=== PATIENT | female | born 1990 | race Caucasian/White ===

== ENCOUNTER 2017-05-11 18:55 | Emergency (ER) | payer MEDICAID ==
[2017-05-11] VITALS (7 sets, daily range): RESP 18; TEMP 97.8
[~2017-05-11 18:55] MED LIST: CIPR0.3S RIGHT EAR
[2017-05-11] MEDS ORDERED: LACTATED RINGER'S 1000 ML INJ 1,000 ML IV SCH (19:36)
[2017-05-11] MEDS ORDERED: PROM25TA10 PO (19:44)
[2017-05-11] MEDS ORDERED: PROM1SUP7 RECTAL (19:44)
--- NOTE | 2017-05-11 19:44 | PD ---
HPI Chief Complaint Nausea vomiting and diarrhea Date Seen: May 11, 2017 Travel History International Travel<30 Days: No Contact w/Intl Traveler<30Days: No Known Affected Area: No History of Present Illness HPI Patient is 26-year-old white female 32 weeks complains of nausea and vomiting and diarrhea today. She states that she thinks she had a stomach flu from her youngest child who recently went thru this. She denies bleeding or rupture the membranes no contractions some abdominal pain and low back pain is noted. heart rate tracing is reactive and only very rare contractions was seen Para: 3 : 4 History Obstetric History Obstetric History 3 vaginal deliveries Allergies-Medications (Allergen,Severity, Reaction): Coded Allergies: Penicillin (Verified Allergy, Severe, RASH, 08/30/16) Bactrim (Verified Allergy, Intermediate, RASH, 08/30/16) Doxycycline (Verified Allergy, Intermediate, RASH, 08/30/16) Home Meds Active Scripts Promethazine Supp (Phenergan Supp)25 Mg Supp25 Mg RECTAL Q6H PRN (NAUSEA OR VOMITING) #6 SUPP Ref 0 Prov:Mohinder Robles II, MD 05/11/17 Promethazine (Phenergan)25 Mg [id number] Mg PO Q6H PRN (NAUSEA OR VOMITING) #20 TAB Ref 0 Prov:Mohinder Robles II, MD 05/11/17 Ciprofloxacin-Dexamethasone Otic Drops (Ciprodex Otic Drops)0.3-0.1% Susp4 Drop RIGHT EAR BID 10 Days Ref 0 Prov:Sushma Walsh MD 08/31/16 Review of Systems General / Constitutional: No: Fever, Weight Gain, Chills, Other Eyes: No: Diploplia, Blurred Vision, Visual changes, Pain, Photophobia HENT: No: Headaches, Vertigo, Lightheadedness Cardiovascular: No: Irregular Rhythm, Chest Pain or Discomfort, Palpitations, Tachycardia, Syncope, Varicosities, Edema, Cyanosis Respiratory: No: Cough, Short of Breath, Other Gastrointestinal: Nausea, Vomiting, Diarrhea, Abdominal Pain Genitourinary: No: Decreased Urinary Output, Oliguria Musculoskeletal: No: Limited ROM, Weakness, Cramping, Edema, Pain Skin: No Rash, No Itching, No Dryness, No Lumps, No Change in Pigmentation, No Change in Nails, No Alopecia, No Lesions Neurologic: No: Weakness, Dizziness, Syncope, Focal Abnormalities, Coordination Problem, Headache, Slurred Speech, Seizures Psychiatric: No: Depression, Suicidal Ideations, Homicidal Ideation Endocrine: No: Heat Intolerance, Cold Intolerance, Polydipsia, Polyuria, Other Physical Exam Narrative GENERAL: Well-nourished, well-developed patient. SKIN: Warm and dry. HEAD: Normocephalic and atraumatic. EYES: No scleral icterus. No injection or drainage. ENT: No nasal drainage noted. Mucous membranes pink. Airway patent. NECK: Supple, trachea midline. No JVD. CARDIOVASCULAR: Regular rate and rhythm without murmurs, gallops, or rubs. RESPIRATORY: Breath sounds equal bilaterally. No accessory muscle use. BREASTS: Bilateral exam showed no masses , no retractions, no nipple discharge. ABDOMEN/GI: Abdomen soft, non-tender, bowel sounds present, no rebound, no guarding Gravid to [-32] weeks size Fundal Height: [-32] GENITOURINARY: External Genitalia: intact and normal in appearance BUS glands: [-] Cervix: [-] Dilatation: [Fingertip-] Effacement: [-Thick] Station: [-Posterior] Membranes: [intact ] Uterine Contractions: [Rare-] FHT's: Category: [1-] Baseline: [133-] Reactive: [yes-] Variability: [mod-] Decels: [0-] EXTREMITIES: No cyanosis or edema. BACK: Nontender without obvious deformity. No CVA tenderness. NEUROLOGICAL: Awake and alert. Motor and sensory grossly within normal limits. Five out of 5 muscle strength in all muscle groups. Normal speech. MDM Interpretation(s) Patient 26-year-old white female [address] Harris who presents complaining of nausea vomiting diarrhea and some mild abdominal pains as well. heart rate tracing is reactive and rare contraction noted. Patient's cervix is fingertip long and thick posterior, urine dipstick pending and will treat accordingly, we'll get a liter of IV fluid for hydration and 8 mg Zofran IV, and home with a prescription for by mouth Phenergan and Phenergan suppositories as a backup Plan Plan for patient to receive IV hydration and anti-medics here and a prescription to go home with. She is to increase bedrest at home increase oral intake by mouth hydration Tylenol use liberally, use imodium AD OTC for diarrhea ,bedrest heating pad or hot bath for comfort and follow-up with her OB provider further symptoms Diagnosis Diagnosis: Primary Impression: Nausea and vomiting of , antepartum Additional Impression: Abdominal pain during in third trimester Disposition: 01 DISCHARGE HOME Condition: Stable Scripts Promethazine Supp (Phenergan Supp)25 Mg Supp25 Mg RECTAL Q6H PRN (NAUSEA OR VOMITING) #6 SUPP Ref 0 Prov:Mohinder Robles II, MD 05/11/17 Promethazine (Phenergan)25 Mg [id number] Mg PO Q6H PRN (NAUSEA OR VOMITING) #20 TAB Ref 0 Prov:Mohinder Robles II, MD 05/11/17 Mohinder Robles II, MD May 11, 2017 19:44
[2017-05-11] MEDS ORDERED: ONDANSETRON HCL 4 MG/2 ML VIAL IV ONE (19:45)
[2017-05-11] MEDS ORDERED: TERBUTALINE INJ 1 MG/ML AMP SQ PRN (20:45)
== END 2017-05-12 00:54 | disposition home or self-care (01) ==
LOC: HOBED 18:55
DX: O21.9 Vomiting of pregnancy, unspecified (principal); Z3A.32 32 weeks gestation of pregnancy
CPT/HCPCS: 59025; 96372; 96374; 96375; 99284; J2405; J3010; J3105; J7120

== ENCOUNTER 2017-05-31 18:39 | Emergency (ER) | payer MEDICAID ==
[~2017-05-31 18:39] MED LIST changes: +PROM1SUP7 RECTAL; +PROM25TA10 PO
[2017-05-31] MEDS ORDERED: LACTATED RINGER'S 1000 ML INJ 1,000 ML IV ONE (19:45)
--- NOTE | 2017-05-31 19:46 | PD ---
HPI Chief Complaint Contractions, since AM 05-30-2017 Date Seen: May 31, 2017 Time Seen: 19:40 Travel History International Travel<30 Days: No Contact w/Intl Traveler<30Days: No Known Affected Area: No History of Present Illness HPI Pt is a 26 yo who presents with c/o uterine contractions since AM yesterday. Pt receives care at [facility], Dr Langford. EDC 07-06-2017, making her 34 weeks and 6 days today. Contractions initially widely spaced, and became more frequent this afternoon. She called office, and was told to present here for evaluation. Reports active movements. No vaginal discharge, bleeding or leaking fluid. Pt with h/o prior 35 week delivery. Denies SI or vaginal exam in past 24 hours. Para: 3 : 4 Last Menstrual Period: May 31, 2017 Miscarriage: 0 : 0 History Past Medical History Narrative Medical h/o renal stones Obstetric History Obstetric History h/o delivery at 35 weeks Past Surgical History Narrative Surgical h/o cholecystectomy wisdom tooth extraction Surgical History: No Previous Surgery Family History Family History: Negative (no relevant family history.) Social History Alcohol Use: No Tobacco Use: No (quit on finding out about ) Substance Abuse: No Allergies-Medications (Allergen,Severity, Reaction): Coded Allergies: Penicillin (Verified Allergy, Severe, RASH, 08/30/16) Bactrim (Verified Allergy, Intermediate, RASH, 08/30/16) Doxycycline (Verified Allergy, Intermediate, RASH, 08/30/16) Home Meds Active Scripts Promethazine Supp (Phenergan Supp)25 Mg Supp25 Mg RECTAL Q6H PRN (NAUSEA OR VOMITING) #6 SUPP Ref 0 Prov:Mohinder Robles II, MD 05/11/17 Promethazine (Phenergan)25 Mg [id number] Mg PO Q6H PRN (NAUSEA OR VOMITING) #20 TAB Ref 0 Prov:Mohinder Robles II, MD 05/11/17 Ciprofloxacin-Dexamethasone Otic Drops (Ciprodex Otic Drops)0.3-0.1% Susp4 Drop RIGHT EAR BID 10 Days Ref 0 Prov:Sushma Walsh MD 08/31/16 Review of Systems Except as stated in HPI: all other systems reviewed are Neg Physical Exam Narrative GENERAL: Well-nourished, well-developed patient. SKIN: Warm and dry. HEAD: Normocephalic and atraumatic. EYES: No scleral icterus. No injection or drainage. ENT: No nasal drainage noted. Mucous membranes pink. Airway patent. NECK: Supple, trachea midline. No JVD. CARDIOVASCULAR: Regular rate and rhythm without murmurs, gallops, or rubs. RESPIRATORY: Breath sounds equal bilaterally. No accessory muscle use. BREASTS: Bilateral exam showed no masses , no retractions, no nipple discharge. ABDOMEN/GI: Abdomen soft, non-tender, bowel sounds present, no rebound, no guarding FIBRONECTIN specimen obtained. Gravid to [-] weeks size Fundal Height: [-] GENITOURINARY: External Genitalia: intact and normal in appearance BUS glands: [-] Cervix: [firm] Dilatation: [closed] Effacement: [40%] Station: [-3 Presentation: [-] Membranes: [intact or ruptured] Uterine Contractions: [every 2 minutes] FHT's: Category: [cat 1] Baseline: [-] Reactive: [-] Variability: [-] Decels: [-] EXTREMITIES: No cyanosis or edema. BACK: Nontender without obvious deformity. No CVA tenderness. NEUROLOGICAL: Awake and alert. Motor and sensory grossly within normal limits. Five out of 5 muscle strength in all muscle groups. Normal speech. Data Data Vital Signs Reviewed: Yes [facility] Medical Record Reviewed: Yes Interpretation(s) Pt's contractions spaced out to occasional after single shot of SQ Terbutaline and 100cc LR IV bolus. Fibronectin is NEGATIVE. Urine dipstick wnl, SG 1.027 Recheck SVE prior to discharge is unchanged. Findings discussed with patient Plan Discharge home. Encouraged lberal fluids Keep scheduled office appointment on 06-07-2017 Disposition: DISCHARGE HOME Condition: Stable Charles Little MD May 31, 2017 19:46
[2017-05-31] MEDS ORDERED: TERBUTALINE INJ 1 MG/ML AMP SQ ONE (20:00)
[2017-05-31 20:37] LABS: BLOOD, URINE NEG (NEG); COMMENT (UR) CULT NOT INDICATED; CULTURE IF INDICATED CULT NOT INDICATED; GLUCOSE,URINE NEG (NEG); KETONE, URINE NEG (NEG); NITRITE,URINE NEG (NEG); SQUAMOUS EPITHELIAL CELL URINE 4 /hpf (0-5); URINE COLOR YELLOW (YELLW/STRAW)
--- NOTE | 2017-05-31 22:00 | PD ---
HPI Chief Complaint Feeling contractions 34 weeks and 6 days Date Seen: May 31, 2017 Travel History International Travel<30 Days: No Contact w/Intl Traveler<30Days: No Known Affected Area: No History of Present Illness HPI Pt is a 26 yo who presents with c/o uterine contractions since AM yesterday. [facility] Dr [facility]. EDC 07-06-2017, making her 34 weeks and 6 days today. Contractions initially widely spaced, and became more frequent this afternoon. She called office, and was told to present here for evaluation. Reports active movements. No vaginal discharge, bleeding or leaking fluid. Pt with h/o prior 35 week delivery. Denies SI or vaginal exam in past 24 hours. Para: 3 : 4 History Past Medical History Medical History: Denies Significant Hx Past Surgical History Narrative Surgical Cholecystectomy, [place] tooth extraction Surgical History: No Previous Surgery Social History Alcohol Use: No Tobacco Use: No (quit at onset of ) Substance Abuse: No Allergies-Medications (Allergen,Severity, Reaction): Coded Allergies: Penicillin (Verified Allergy, Severe, RASH, 08/30/16) Bactrim (Verified Allergy, Intermediate, RASH, 08/30/16) Doxycycline (Verified Allergy, Intermediate, RASH, 08/30/16) Home Meds Active Scripts Promethazine Supp (Phenergan Supp)25 Mg Supp25 Mg RECTAL Q6H PRN (NAUSEA OR VOMITING) #6 SUPP Ref 0 Prov:Mohinder Robles II, MD 05/11/17 Promethazine (Phenergan)25 Mg [id number] Mg PO Q6H PRN (NAUSEA OR VOMITING) #20 TAB Ref 0 Prov:Mohinder Robles II, MD 05/11/17 Ciprofloxacin-Dexamethasone Otic Drops (Ciprodex Otic Drops)0.3-0.1% Susp4 Drop RIGHT EAR BID 10 Days Ref 0 Prov:Sushma Walsh MD 08/31/16 Review of Systems Except as stated in HPI: all other systems reviewed are Neg Physical Exam Narrative GENERAL: Well-nourished, well-developed patient. SKIN: Warm and dry. HEAD: Normocephalic and atraumatic. EYES: No scleral icterus. No injection or drainage. ENT: No nasal drainage noted. Mucous membranes pink. Airway patent. NECK: Supple, trachea midline. No JVD. CARDIOVASCULAR: Regular rate and rhythm without murmurs, gallops, or rubs. RESPIRATORY: Breath sounds equal bilaterally. No accessory muscle use. BREASTS: Bilateral exam showed no masses , no retractions, no nipple discharge. ABDOMEN/GI: Abdomen soft, non-tender, bowel sounds present, no rebound, no guarding Gravid to [-] weeks size Fundal Height: [-] GENITOURINARY: External Genitalia: intact and normal in appearance BUS glands: [-] Cervix: [soft] Dilatation: [closed] Effacement: [uneffaced] Station: [-3] Presentation: [-] Membranes: [intact or ruptured] Uterine Contractions: [2-3] EXAM unchanged on recheck prior to discharge. Coontractions spaced out. FHT's: Category: [Cat 1] Baseline: [-] Reactive: [-] Variability: [-] Decels: [-] EXTREMITIES: No cyanosis or edema. BACK: Nontender without obvious deformity. No CVA tenderness. NEUROLOGICAL: Awake and alert. Motor and sensory grossly within normal limits. Five out of 5 muscle strength in all muscle groups. Normal speech. Data Data Orders Urinalysis - C+S If Indicated (05/31/17 19:34) Fibronectin (05/31/17 19:34) Lactated Ringer's 1000 Ml Inj (Lr 1000 M (05/31/17 19:45) Terbutaline Inj (Brethine Inj) (05/31/17 20:00) Labs Laboratory Tests Test 05/31/17 05/31/17 19:27 19:28 Urine Color YELLOW Urine Turbidity HAZY Urine pH 7.0 Urine Specific [place] 1.027 Urine Protein 30 Urine Glucose (UA) NEG Urine Ketones NEG Urine Occult Blood NEG Urine Nitrite NEG Urine Bilirubin NEG Urine Urobilinogen LESS THAN 2.0 Urine Leukocyte Esterase MOD Urine WBC 5 Urine Squamous Epithelial 4 Cells Microscopic Urinalysis Comment CULT NOT INDICATED Fibronectin NEGATIVE MDM Medical Record Reviewed: Yes Interpretation(s) No cervical change on re-exam. Cervix closed, long. fibronectin negative. UA wnl, SH1.027 Diagnosis Diagnosis: Primary Impression: uterine contractions in third trimester, antepartum Disposition: DISCHARGE HOME (keep scheduled FU with office 06-07-2017) Condition: Stable Patient Instructions: General Instructions, Early Labor Signs (ED), Labor (ED), Movement (ED) Departure Forms: Tests/Procedures Charles Little MD May 31, 2017 22:00
== END 2017-05-31 22:00 | disposition home or self-care (01) ==
LOC: HOBED 18:39
DX: O47.03 False labor before 37 completed weeks of gestation, third trimester (principal); Z3A.34 34 weeks gestation of pregnancy; Z88.1 Allergy status to other antibiotic agents; Z88.0 Allergy status to penicillin; Z88.8 Allergy status to other drugs, medicaments and biological substances
CPT/HCPCS: 59025; 81001; 82731; 96372; 99284; J3105; J7120

== ENCOUNTER 2017-06-09 21:00 | Emergency (ER) | payer MEDICAID ==
[~2017-06-09] VITALS: Ht 160 cm; Wt 73.0 kg
[2017-06-09 21:20] VITALS: RESP 18; TEMP 98.2
[2017-06-09 21:30] VITALS: BP 120/89; PULSE 90
[2017-06-09] MEDS ORDERED: PREN29TA PO (21:31)
--- NOTE | 2017-06-09 21:53 | PD ---
HPI Travel History International Travel<30 Days: No Contact w/Intl Traveler<30Days: No Known Affected Area: No History of Present Illness HPI This patient is a 26-year-old 4 para 2 EDC is July 06, 2017 presently at 36 weeks and 1 day she presents with chief complaint of contractions which began about 4 hours ago she has not time them No rupture of membrane, no vaginal bleeding the baby is active States the contractions are associated with low back pain and pressure in her pelvis and vaginal area care with Dr. Gutierrez course as been unremarkable She was seen in the office on Saturday checked she was 1 cm dilated History Past Medical History Narrative Medical Patient is allergic to Bactrim penicillin and doxycycline no major medical problems Obstetric History Obstetric History Normal spontaneous vaginal delivery 3 at term uncomplicated Past Surgical History Narrative Surgical Gallbladder and dental surgery Family History Narrative Family History Hypertension Social History Alcohol Use: No Tobacco Use: No Substance Abuse: No Allergies-Medications (Allergen,Severity, Reaction): Coded Allergies: penicillin G (Unverified Allergy, Severe, RASH, 06/09/17) doxycycline (Unverified Allergy, Intermediate, RASH, 06/09/17) sulfamethoxazole (Unverified Allergy, Intermediate, RASH, 06/09/17) trimethoprim (Unverified Allergy, Intermediate, RASH, 06/09/17) Home Meds Reported Medications Vit-Iron Carbonyl ( Plus Iron 29-1 mg) 1 Tab Tab, 1 TAB PO DAILY for Nutritional Supplement, #30 TAB 0 Refills 06/09/17 Discontinued Scripts Promethazine Supp (Phenergan Supp) 25 Mg Supp, 25 MG RECTAL Q6H Y for NAUSEA OR VOMITING, #6 SUPP 0 Refills Prov:Mohinder Robles II, MD 05/11/17 Promethazine (Phenergan) 25 Mg Tablet, 25 MG PO Q6H Y for NAUSEA OR VOMITING, # 20 TAB 0 Refills Prov:Mohinder Robles II, MD 05/11/17 Ciprofloxacin-Dexamethasone Otic Drops (Ciprodex Otic Drops) 0.3-0.1% Susp, 4 DROP RIGHT EAR BID for Infection for 10 Days, BOTTLE 0 Refills Prov:Sushma Walsh MD 08/31/16 Review of Systems General / Constitutional: No: Fever, Weight Gain, Weight Loss, Chills, Other Eyes: No: Diploplia, Blurred Vision, Visual changes, Pain, Photophobia, Other HENT: No: Headaches, Vertigo, Dental Difficulties, Lightheadedness, Other Cardiovascular: No: Irregular Rhythm, Chest Pain or Discomfort, Palpitations, Tachycardia, Syncope, Varicosities, Edema, Cyanosis, Other Respiratory: No: Cough, Short of Breath, Wheezing, Other Gastrointestinal: Nausea (mild nausea), Abdominal Pain (irregular contractions) Genitourinary: No: Urgency, Frequency, Dysuria, Nocturia, Hematuria, Decreased Urinary Output, Oliguria, Hesitancy, Dribbling, Incontinence, Pelvic Pain, Dyspareunia, Discharge, Menorrhagia, Vaginal Bleeding, Other Musculoskeletal: No: Limited ROM, Weakness, Cramping, Edema, Pain, Other Skin: No Rash, No Itching, No Dryness, No Lumps, No Change in Pigmentation, No Change in Nails, No Alopecia, No Lesions, No Breast Lumps, No Breast Tenderness , No Breast Swelling, No Other Neurologic: No: Weakness, Dizziness, Syncope, Focal Abnormalities, Coordination Problem, Headache, Slurred Speech, Seizures, Other Physical Exam Narrative GENERAL: Well-nourished, well-developed patient. Alert oriented 3 and cooperative in no acute distress SKIN: Warm and dry. HEAD: Normocephalic and atraumatic. EYES: No scleral icterus. No injection or drainage. Conjunctiva are pink ENT: No nasal drainage noted. Mucous membranes pink. Airway patent. NECK: Supple, trachea midline. No JVD. CARDIOVASCULAR: Regular rate and rhythm without murmurs, gallops, or rubs. ABDOMEN/GI: Gravid consistent with stated gestational age of 36 weeks no palpable contractions no epigastric or right upper quadrant tenderness no rebound Gravid to [-] weeks size 36 Fundal Height: [-] GENITOURINARY: External Genitalia: intact and normal in appearance BUS glands: [-] Cervix: [-] Posterior soft Dilatation: [-] 1 Effacement: [-] 0 Station: [-] Ballotable Presentation: [-] Vertex Membranes: [intact Irregular contractions FHT's: Category: [-] 1 Baseline: [-] 140 Reactive: [-] Positive Variability: [-] Moderate Decels: [-] 0 EXTREMITIES: No cyanosis or edema. 2+ reflexes NEUROLOGICAL: Awake and alert. Motor and sensory grossly within normal limits. Five out of 5 muscle strength in all muscle groups. Normal speech. Data Data Vital Signs Reviewed: Yes (blood pressure 120/89 pulse is 90 she is afebrile) Orders Orders Vital Signs (Adult) .ON ADMISSION (06/09/17 21:46) ^ Labor Status (06/09/17 21:46) Urinalysis - C+S If Indicated (06/09/17 21:46) ^ Hydration (06/09/17 21:46) MDM Medical Record Reviewed: No Interpretation(s) 26-year-old 4 para 3 at 36 weeks and 1 day Not in labor Yoni Webb Lightning Rule out UTI Narrative Course / MDM Category 1 tracing No contractions We'll discharge patient home By mouth fluid hydration Rest Warm tub bath kick count Call office in the morning for follow-up appointment Plan External monitoring By mouth fluid hydration Urine dipstick was done Everything is negative Moderate leukocyte esterase Diagnosis Diagnosis: Primary Impression: with 36 completed weeks gestation Additional Impression: Nowata Webb' contraction Disposition: DISCHARGE HOME Condition: Stable Patti Santana MD Jun 09, 2017 21:53
== END 2017-06-09 22:20 | disposition home or self-care (01) ==
LOC: HOBED 21:00
DX: O47.03 False labor before 37 completed weeks of gestation, third trimester (principal); Z3A.36 36 weeks gestation of pregnancy
CPT/HCPCS: 99284

== ENCOUNTER 2017-06-16 08:17 | Emergency (ER) | payer MEDICAID ==
[~2017-06-16 08:17] MED LIST changes: -CIPR0.3S RIGHT EAR; +PREN29TA PO; -PROM1SUP7 RECTAL; -PROM25TA10 PO
--- NOTE | 2017-06-16 09:33 | PD ---
HPI Chief Complaint contractions Date Seen: Jun 16, 2017 Travel History International Travel<30 Days: No Contact w/Intl Traveler<30Days: No Known Affected Area: No History of Present Illness HPI 26 yo @ 37w1d. care with Dr. Gutierrez. Uncomplicated . GBS pos. Patient reports UC since 5AM, they were irregular and now maybe q 5 min. She noted a small amount of bloody show. No LOF or abnormal discharge. +FM. History Past Medical History Narrative Medical Tattoo Piercing Obstetric History Obstetric History x 3 Past Surgical History Narrative Surgical wisdom teeth gallbladder Family History Family History: Negative Social History Alcohol Use: No Tobacco Use: No Substance Abuse: No Allergies-Medications (Allergen,Severity, Reaction): Coded Allergies: penicillin G (Unverified Allergy, Severe, RASH, 06/09/17) doxycycline (Unverified Allergy, Intermediate, RASH, 06/09/17) sulfamethoxazole (Unverified Allergy, Intermediate, RASH, 06/09/17) trimethoprim (Unverified Allergy, Intermediate, RASH, 06/09/17) Home Meds Reported Medications Vit-Iron Carbonyl ( Plus Iron 29-1 mg) 1 Tab Tab, 1 TAB PO DAILY for Nutritional Supplement, #30 TAB 0 Refills 06/09/17 Discontinued Scripts Promethazine Supp (Phenergan Supp) 25 Mg Supp, 25 MG RECTAL Q6H Y for NAUSEA OR VOMITING, #6 SUPP 0 Refills Prov:Mohinder Robles II, MD 05/11/17 Promethazine (Phenergan) 25 Mg Tablet, 25 MG PO Q6H Y for NAUSEA OR VOMITING, # 20 TAB 0 Refills Prov:Mohinder Robles II, MD 05/11/17 Ciprofloxacin-Dexamethasone Otic Drops (Ciprodex Otic Drops) 0.3-0.1% Susp, 4 DROP RIGHT EAR BID for Infection for 10 Days, BOTTLE 0 Refills Prov:Sushma Walsh MD 08/31/16 Review of Systems General / Constitutional: No: Fever, Chills Eyes: No: Visual changes HENT: No: Headaches, Lightheadedness Cardiovascular: No: Chest Pain or Discomfort, Palpitations Respiratory: No: Cough, Short of Breath Gastrointestinal: Abdominal Pain (contractions), No: Nausea, Vomiting Genitourinary: Vaginal Bleeding (small amount of bloody show), No: Urgency, Discharge Musculoskeletal: No: Limited ROM, Weakness Skin: No Rash, No Lesions Neurologic: No: Syncope, Focal Abnormalities Physical Exam Narrative GENERAL: Well-nourished, well-developed patient. NAD SKIN: Warm and dry. HEAD: Normocephalic and atraumatic. EYES: No scleral icterus. No injection or drainage. ENT: No nasal drainage noted. Mucous membranes pink. Airway patent. NECK: trachea midline. No JVD. CARDIOVASCULAR: Regular rate RESPIRATORY: No accessory muscle use. ABDOMEN/GI: Abdomen soft, non-tender, no rebound, no guarding Gravid GENITOURINARY: External Genitalia: intact and normal in appearance BUS glands: [-] SVE: 3/60/-2 FHT's: Category: I Baseline: 155 Reactive: + Variability: mod Decels: [-] EXTREMITIES: No cyanosis or edema. BACK: Nontender without obvious deformity. Normal ROM NEUROLOGICAL: Awake and alert. Motor and sensory grossly within normal limits. Normal speech. Data Data Vital Signs Reviewed: Yes Orders Orders Vital Signs (Adult) .ON ADMISSION (06/16/17 08:43) ^ Labor Status (06/16/17 08:43) ^ Non Stress Test (06/16/17 08:43) Group B Strep: Positive MDM Narrative Course / MDM 37 weeks Latent vs early labor minimal cervical change from clinic visit Irregular UC at this time CAT I FHT Plan Offered to recheck Patient would like to go home and monitor UC Return when stronger or more regular Patient agrees with plan of care Diagnosis Diagnosis: Primary Impression: False labor after 37 weeks of gestation without delivery Additional Impressions: GBS (group B Streptococcus carrier), +RV culture, currently 37 weeks gestation of Disposition: 01 DISCHARGE HOME Condition: Good Gely Bruce MD Jun 16, 2017 09:33
== END 2017-06-16 09:40 | disposition home or self-care (01) ==
LOC: HOBED 08:17
DX: O47.1 False labor at or after 37 completed weeks of gestation (principal); O99.820 Streptococcus B carrier state complicating pregnancy; Z3A.37 37 weeks gestation of pregnancy
CPT/HCPCS: 59025

== ENCOUNTER 2017-06-18 12:59 | Emergency (ER) | payer MEDICAID ==
[~2017-06-18] VITALS: Ht 160 cm; Wt 73.0 kg
--- NOTE | 2017-06-18 16:00 | PD ---
HPI Chief Complaint Pelvic pressure, vaginal pain Travel History International Travel<30 Days: No Contact w/Intl Traveler<30Days: No Known Affected Area: No History of Present Illness HPI 27y/o , IUP at 37.3 PNC complicated by GBS positive Patient presents c/o pelvic pressure and vaginal pain/pain between her legs with the sensation that it is painful to walk. She reports some irregular ctx; she reports she was seen here 2d ago and SVE was 3/50. She denies any aggravating/alleviating factors except the pain sensation with walking. There are no attempted treatments. She denies any LOF or VB. She reports good FM. She has no other complaints today. She denies pain on/in the pubic symphysis. Weeks Gestation: 37 Para: 3 : 4 History Past Medical History Medical History: Denies Significant Hx Obstetric History Obstetric History 3 FT Past Surgical History Narrative Surgical Cholecystectomy [place] teeth extraction Family History Narrative Family History DM HTN CAD [place] Social History Alcohol Use: No Tobacco Use: No Substance Abuse: No Allergies-Medications (Allergen,Severity, Reaction): Coded Allergies: penicillin G (Verified Allergy, Severe, RASH, 06/18/17) doxycycline (Verified Allergy, Intermediate, RASH, 06/18/17) sulfamethoxazole (Verified Allergy, Intermediate, RASH, 06/18/17) trimethoprim (Verified Allergy, Intermediate, RASH, 06/18/17) Home Meds Reported Medications Vit-Iron Carbonyl ( Plus Iron 29-1 mg) 1 Tab Tab, 1 TAB PO DAILY for Nutritional Supplement, #30 TAB 0 Refills 06/09/17 Review of Systems Except as stated in HPI: all other systems reviewed are Neg Physical Exam Narrative GENERAL: Well-nourished, well-developed patient. SKIN: Warm and dry. HEAD: Normocephalic and atraumatic. EYES: No scleral icterus. No injection or drainage. ENT: No nasal drainage noted. Mucous membranes pink. Airway patent. NECK: Supple, trachea midline. No JVD. CARDIOVASCULAR: Regular rate and rhythm without murmurs, gallops, or rubs. RESPIRATORY: Breath sounds equal bilaterally. No accessory muscle use. BREASTS: deferred ABDOMEN/GI: Abdomen soft, non-tender, bowel sounds present, no rebound, no guarding Gravid, pubic symphysis nontender GENITOURINARY: External Genitalia: intact and normal in appearance BUS glands: [normal] Cervix: [no cervical/vaginal masses, physiologic d/c, normal rugae] Dilatation: [3] Effacement: [50] Station: [-3] Presentation: [cephalic] Membranes: [intact] Uterine Contractions: [irregular ctx pattern] FHT's: Category: [1] Baseline: [120s] Reactive: [reactive] Variability: [moderate LTV] Decels: [good accels, no decels] EXTREMITIES: No cyanosis or edema. BACK: Nontender without obvious deformity. No CVA tenderness. NEUROLOGICAL: Awake and alert. Motor and sensory grossly within normal limits. Five out of 5 muscle strength in all muscle groups. Normal speech. MS: grossly normal ROM, gait, muscle strength PSYCH: grossly normal memory/affect MDM Plan A/P: 27y/o 1. IUP at 37 2. No evidence of active labor, strict labor precautions 3. Pelvic pain/pressure likely secondary to normal symptoms at advanced gestational age, comfort measures offered 4. wellbeing: reassuring testing with reactive NST, FHR reassuring and appropriate for gestational age. FKC daily. 5. F/U with primary MD in 2-3d or sooner if needed 6. GBS positive Diagnosis Diagnosis: Primary Impression: 37 weeks gestation of Additional Impression: False labor at or after 37 completed weeks of gestation Disposition: 01 DISCHARGE HOME Condition: Good Patient Instructions: General Instructions, Having Your Baby: The Labor Process (GEN), Movement (ED) Additional Instructions: Return if water breaks, regular painful contractions, vaginal bleeding or decreased movement. Keep regular scheduled appointment. Departure Forms: Tests/Procedures Mona Vaughn MD Jun 18, 2017 16:00
== END 2017-06-18 16:44 | disposition home or self-care (01) ==
LOC: HOBED 12:59
DX: O47.1 False labor at or after 37 completed weeks of gestation (principal); Z3A.37 37 weeks gestation of pregnancy; Z88.0 Allergy status to penicillin; Z88.2 Allergy status to sulfonamides; Z88.8 Allergy status to other drugs, medicaments and biological substances
CPT/HCPCS: 59025

== ENCOUNTER 2017-06-23 12:28 | Emergency (ER) | payer MEDICAID ==
[~2017-06-23] VITALS: Ht 160 cm; Wt 73.5 kg
[2017-06-23 12:45] VITALS: RESP 20; TEMP 98.2
--- NOTE | 2017-06-23 13:16 | PD ---
HPI Chief Complaint Contractions Thin vaginal discharge Date Seen: Jun 23, 2017 Time Seen: 13:03 Travel History International Travel<30 Days: No Contact w/Intl Traveler<30Days: No Known Affected Area: No History of Present Illness HPI Pt is a 27 yo who presents at 38 weeks and 1 day. EDC 07-06-2017. care with Dr Gutierrez Pt reports vaginal discharge past week, with back pain and pressure. Reports uterine contractions this morning. Active movements. No vaginal bleeding. Weeks Gestation: 38 Para: 3 : 4 History Past Surgical History Narrative Surgical Laparoscopic cholecystectomy Family History Family History: Negative Social History Alcohol Use: No Tobacco Use: No Substance Abuse: No Allergies-Medications (Allergen,Severity, Reaction): Coded Allergies: penicillin G (Verified Allergy, Severe, RASH, 06/18/17) doxycycline (Verified Allergy, Intermediate, RASH, 06/18/17) sulfamethoxazole (Verified Allergy, Intermediate, RASH, 06/18/17) trimethoprim (Verified Allergy, Intermediate, RASH, 06/18/17) Home Meds Reported Medications Vit-Iron Carbonyl ( Plus Iron 29-1 mg) 1 Tab Tab, 1 TAB PO DAILY for Nutritional Supplement, #30 TAB 0 Refills 06/09/17 Review of Systems Except as stated in HPI: all other systems reviewed are Neg Physical Exam Narrative GENERAL: Well-nourished, well-developed patient. SKIN: Warm and dry. HEAD: Normocephalic and atraumatic. EYES: No scleral icterus. No injection or drainage. ENT: No nasal drainage noted. Mucous membranes pink. Airway patent. NECK: Supple, trachea midline. No JVD. CARDIOVASCULAR: Regular rate and rhythm without murmurs, gallops, or rubs. RESPIRATORY: Breath sounds equal bilaterally. No accessory muscle use. BREASTS: Bilateral exam showed no masses , no retractions, no nipple discharge. ABDOMEN/GI: Abdomen soft, non-tender, bowel sounds present, no rebound, no guarding Gravid to [38 weeks size Fundal Height: [38 GENITOURINARY: External Genitalia: intact and normal in appearance BUS glands: [-] Cervix: [soft-] Dilatation: [2-3cm] Effacement: [50%] Station: [-3] Presentation: [vertex] Membranes: [intact] Uterine Contractions: [3-4minutes] SWAB taken for Amniosure FHT's: Category: [1] Baseline: [130s] Reactive: [-] Variability: [moderate] Decels: [none] EXTREMITIES: No cyanosis or edema. BACK: Nontender without obvious deformity. No CVA tenderness. NEUROLOGICAL: Awake and alert. Motor and sensory grossly within normal limits. Five out of 5 muscle strength in all muscle groups. Normal speech. Data Data Vital Signs Reviewed: Yes Orders Orders Vital Signs (Adult) .ON ADMISSION (06/23/17 13:01) ^ Labor Status (06/23/17 13:01) Pamg-1 Test .ONCE (06/23/17 13:01) Group B Strep: Positive MDM Medical Record Reviewed: Yes Interpretation(s) FALSE LABOR Uterine contractions. Initial exam unchanged from last exam 06-18-2017 Amniosure sent Repeat exam unchanged. Amniosure NEGATIVE Plan Interval repeat cervical exam.- unchanged Amniosure negative Diagnosis Diagnosis: Primary Impression: False labor after 37 completed weeks of gestation Additional Impression: with 38 completed weeks gestation Disposition: DISCHARGE HOME Charles Little MD Jun 23, 2017 13:16
== END 2017-06-23 13:43 | disposition home or self-care (01) ==
LOC: HOBED 12:28
DX: Z03.71 Encounter for suspected problem with amniotic cavity and membrane ruled out (principal); O47.1 False labor at or after 37 completed weeks of gestation; Z3A.38 38 weeks gestation of pregnancy
CPT/HCPCS: 84112; 99283

== ENCOUNTER 2017-07-02 18:21 | Emergency (ER) | payer MEDICAID ==
--- NOTE | 2017-07-02 19:26 | PD ---
HPI Chief Complaint discomfort, pressure , a few contractions Date Seen: Jul 02, 2017 Time Seen: 19:20 Travel History International Travel<30 Days: No Contact w/Intl Traveler<30Days: No Known Affected Area: No History of Present Illness HPI 27-year-old white female G for P3 39 weeks complains of contractions irregular. , pressure and discomfort all over. heart rate tracing is reactive she is natacha every 3 minutes but not with a lot of discomfort Weeks Gestation: 39 Para: 3 : 4 History Obstetric History Obstetric History 3 vaginal deliveries Social History Alcohol Use: No Tobacco Use: No Substance Abuse: No Allergies-Medications (Allergen,Severity, Reaction): Coded Allergies: penicillin G (Verified Allergy, Severe, RASH, 06/18/17) doxycycline (Verified Allergy, Intermediate, RASH, 06/18/17) sulfamethoxazole (Verified Allergy, Intermediate, RASH, 06/18/17) trimethoprim (Verified Allergy, Intermediate, RASH, 06/18/17) Home Meds Reported Medications Vit-Iron Carbonyl ( Plus Iron 29-1 mg) 1 Tab Tab, 1 TAB PO DAILY for Nutritional Supplement, #30 TAB 0 Refills 06/09/17 Review of Systems General / Constitutional: No: Fever, Weight Gain, Chills, Other Eyes: No: Diploplia, Blurred Vision, Visual changes, Pain, Photophobia HENT: No: Headaches, Vertigo, Lightheadedness Cardiovascular: No: Irregular Rhythm, Chest Pain or Discomfort, Palpitations, Tachycardia, Syncope, Varicosities, Edema, Cyanosis Respiratory: No: Cough, Short of Breath, Other Gastrointestinal: No: Nausea, Vomiting, Diarrhea Genitourinary: No: Decreased Urinary Output, Oliguria Musculoskeletal: No: Limited ROM, Weakness, Cramping, Edema, Pain Skin: No Rash, No Itching, No Dryness, No Lumps, No Change in Pigmentation, No Change in Nails, No Alopecia, No Lesions Neurologic: No: Weakness, Dizziness, Syncope, Focal Abnormalities, Coordination Problem, Headache, Slurred Speech, Seizures Psychiatric: No: Depression, Suicidal Ideations, Homicidal Ideation Endocrine: No: Heat Intolerance, Cold Intolerance, Polydipsia, Polyuria, Other Physical Exam Narrative GENERAL: Well-nourished, well-developed patient. SKIN: Warm and dry. HEAD: Normocephalic and atraumatic. EYES: No scleral icterus. No injection or drainage. ENT: No nasal drainage noted. Mucous membranes pink. Airway patent. NECK: Supple, trachea midline. No JVD. CARDIOVASCULAR: Regular rate and rhythm without murmurs, gallops, or rubs. RESPIRATORY: Breath sounds equal bilaterally. No accessory muscle use. BREASTS: Bilateral exam showed no masses , no retractions, no nipple discharge. ABDOMEN/GI: Abdomen soft, non-tender, bowel sounds present, no rebound, no guarding Gravid to [39-] weeks size Fundal Height: [-39] GENITOURINARY: External Genitalia: intact and normal in appearance BUS glands: [-] Cervix: [Posterior-] Dilatation: [4-5-] patient states she was 4-5 in the office recently visit Effacement: [-Thick] Station: [-3] Presentation: [vtx-] Membranes: [intact ] Uterine Contractions: [Every 3-4 minutes-] FHT's: Category: [-1] Baseline: [133-] Reactive: [yes-] Variability: [mod-] Decels: [none-] EXTREMITIES: No cyanosis or edema. BACK: Nontender without obvious deformity. No CVA tenderness. NEUROLOGICAL: Awake and alert. Motor and sensory grossly within normal limits. Five out of 5 muscle strength in all muscle groups. Normal speech. MDM Interpretation(s) Patient is 27-year-old white female patient Dr. Langford presents complaining of contractions or not really painful but present, discomfort, pressure. heart rate tracing is reactive and contractions are seen on the monitor, however cervix is unchanged from recent office visit is 4-5 cm very thick and posterior Plan Plan to discharge home for return with worsening contractions over water breaks or bleeding occurs. She understands that she needs to rest and increase her fluid intake and use a heating pad or hot bath for symptoms Diagnosis Diagnosis: Primary Impression: False labor after 37 weeks of gestation without delivery Disposition: 01 DISCHARGE HOME Condition: Stable Mohinder Robles II, MD Jul 02, 2017 19:26
== END 2017-07-02 19:30 | disposition home or self-care (01) ==
LOC: HOBED 18:21
DX: O47.1 False labor at or after 37 completed weeks of gestation (principal); Z3A.39 39 weeks gestation of pregnancy
CPT/HCPCS: 59025

== ENCOUNTER 2017-07-05 09:59 | Inpatient (IN) | payer MEDICAID ==
[2017-07-05] VITALS (62 sets, daily range): BP systolic 107–146; BP diastolic 54–94; PULSE 61–91; RESP 16–18; TEMP 98.1–98.3
[~2017-07-05] VITALS: Ht 160 cm; Wt 73.9 kg
[2017-07-05 11:30] LABS: AUTOMATED NEUTROPHIL # 7.6 TH/MM3 (1.8-7.7); BASOPHIL # 0.1 TH/MM3 (0-0.2); BASOPHIL % 0.6 % (0.0-2.0); EOSINOPHIL # 0.1 TH/MM3 (0-0.4); EOSINOPHIL % 0.9 % (0.0-4.0); HEMATOCRIT 35.5 % (35.0-46.0); HEMO FLAGS DIFF FINAL; LYMPH % 20.7 % (9.0-44.0); LYMPHOCYTE # 2.2 TH/MM3 (1.0-4.8); MEAN CELL VOLUME 80.9 FL (80.0-100.0); MEAN CORPUSCULAR HEMOGLOBIN 26.5 PG (27.0-34.0); MEAN CORPUSCULAR HGB CONC 32.8 % (32.0-36.0); MONO % 6.1 % (0.0-8.0); NEUT % 71.7 % (16.0-70.0); PLATELET COUNT 191 TH/MM3 (150-450); RED BLOOD COUNT 4.39 MIL/MM3 (4.00-5.30); RED CELL DISTRIBUTION WIDTH 14.1 % (11.6-17.2); WHITE BLOOD COUNT 10.6 TH/MM3 (4.0-11.0)
[2017-07-05 11:40] LABS: BACTERIA, URINE FEW /hpf; BLOOD, URINE NEG (NEG); COMMENT (UR) CULTURE INDICATED; CULTURE IF INDICATED CULTURE INDICATED; GLUCOSE,URINE NEG (NEG); KETONE, URINE NEG (NEG); MUCUS URINE FEW /lpf (OCC); NITRITE,URINE NEG (NEG); SQUAMOUS EPITHELIAL CELL URINE 11 /hpf (0-5); URINE COLOR YELLOW (YELLW/STRAW)
[2017-07-05] MEDS ORDERED: MINERAL OIL 10 ML VIAL TOPICAL PRN (11:45)
[2017-07-05] MEDS ORDERED: LIDOCAINE HCL 1% 50 ML VIAL INFIL PRN (11:45)
[2017-07-05] MEDS ORDERED: CITRIC ACID-SODIUM CITRATE LIQ 30 ML UDC PO SCH (11:45)
[2017-07-05] MEDS ORDERED: SODIUM CHLORID 0.9% 500 ML INJ 500 ML IV PRN (11:45)
[2017-07-05] MEDS ORDERED: OXYTOCIN 30 UNITS-500ML PREMIX 500 ML IV SCH ×3 (11:45→23:00)
[2017-07-05] MEDS ORDERED: OXYTOCIN 30 UNITS-500ML PREMIX 500 ML IV ONE (11:45)
[2017-07-05] MEDS ORDERED: LIDOCAINE HCL 1% 50 ML VIAL I-DERMAL PRN (11:45)
[2017-07-05] MEDS ORDERED: SODIUM CHLOR 0.9% 1000 ML INJ 1,000 ML IV PRN (12:00)
[2017-07-05] MEDS ORDERED: ceFAZolin 2 GM PREMIX 50 ML IV ONE (12:00)
[2017-07-05] MEDS: LACTATED RINGER'S 1000 ML INJ 1,000 ML IV SCH ×2 (12:08→12:38)
[2017-07-05] MEDS: LACTATED RINGER'S 1000 ML INJ 1,000 ML IV PRN ×2 (14:58→16:58)
[2017-07-05] MEDS ORDERED: DIPHTH/TETANUS/ACEL PERTUSSIS (BOOSTER) 0.5 ML VIAL/PFS IM ONE (16:00)
[2017-07-05] MEDS ORDERED: MEASLES, MUMPS, RUBELLA VACCINE 0.5 ML VIAL SQ ONE (16:00)
[2017-07-05] MEDS ORDERED: fentaNYL 2MCG-BUPIV 0.125% INJ 100 ML ONE (16:19)
[2017-07-05] MEDS ORDERED: ePHEDrine/NS 25 MG/5 ML SYR ONE (16:27)
[2017-07-05] MEDS ORDERED: BUPIVACAINE HCL PF 0.25% 10 ML VIAL ONE (16:33)
[2017-07-05] MEDS ORDERED: DO NOT ADMINISTER ANTICOAGULANTS PRN (17:30)
[2017-07-05] MEDS ORDERED: fentaNYL 2MCG-BUPIV 0.125% 100 ML EPIDURAL SCH (17:30)
[2017-07-05] MEDS ORDERED: NO SYSTEM NARCOTICS PRN (17:30)
[2017-07-05] MEDS ORDERED: ePHEDrine/NS 25 MG/5 ML SYR IV PRN (17:30)
--- NOTE | 2017-07-05 22:54 | HHI.HP ---
HPI Chief Complaint induction at 39 weeks Date Seen: Jul 05, 2017 Time Seen: 12:00 Travel History International Travel<30 Days: No Contact w/Intl Traveler<30Days: No Known Affected Area: No History of Present Illness HPI 39 week induction with favorable cervix Weeks Gestation: 39 Para: 3 : 4 History Past Medical History Medical History: Denies Significant Hx Past Surgical History Surgical History: No Previous Surgery Family History Family History: Negative Social History Alcohol Use: No Tobacco Use: No Substance Abuse: No Allergies-Medications (Allergen,Severity, Reaction): Coded Allergies: penicillin G (Verified Allergy, Severe, RASH, 06/18/17) doxycycline (Verified Allergy, Intermediate, RASH, 06/18/17) sulfamethoxazole (Verified Allergy, Intermediate, RASH, 06/18/17) trimethoprim (Verified Allergy, Intermediate, RASH, 06/18/17) Home Meds Reported Medications Vit-Iron Carbonyl ( Plus Iron 29-1 mg) 1 Tab Tab, 1 TAB PO DAILY for Nutritional Supplement, #30 TAB 0 Refills 06/09/17 Review of Systems Except as stated in HPI: all other systems reviewed are Neg Physical Exam Vital Signs Date Time Temp Pulse Resp B/P (MAP) Pulse Ox O2 Delivery O2 Flow Rate FiO2 07/05/17 22:30 88 128/79 (95) 07/05/17 22:15 86 110/58 (75) 07/05/17 22:00 98.1 17 07/05/17 22:00 86 112/67 (82) 07/05/17 21:46 91 116/79 (91) 07/05/17 21:15 61 107/54 (71) 07/05/17 21:08 18 07/05/17 21:00 65 117/75 (89) 07/05/17 20:45 71 125/72 (89) 07/05/17 20:30 69 128/76 (93) 07/05/17 20:15 70 123/77 (92) 07/05/17 20:01 68 128/70 (89) 07/05/17 19:46 123/64 (83) 07/05/17 19:31 67 123/66 (85) 07/05/17 19:21 98.1 17 07/05/17 19:15 72 121/80 (94) 07/05/17 19:00 64 119/68 (85) 07/05/17 18:45 66 119/65 (83) 07/05/17 18:15 68 120/70 (87) 07/05/17 17:55 80 07/05/17 17:50 82 07/05/17 17:46 62 114/63 (80) 07/05/17 17:45 74 07/05/17 17:34 18 07/05/17 17:30 73 18 119/69 (86) 07/05/17 17:30 67 07/05/17 17:25 72 07/05/17 17:20 79 07/05/17 17:15 73 121/60 (80) 07/05/17 17:15 65 07/05/17 17:10 69 07/05/17 17:05 71 07/05/17 17:05 73 115/68 (84) 07/05/17 17:01 71 118/54 (75) 07/05/17 17:00 71 07/05/17 16:56 69 18 115/62 (79) 07/05/17 16:55 66 07/05/17 16:53 61 111/65 (80) 07/05/17 16:51 63 117/58 (77) 07/05/17 16:50 86 07/05/17 16:45 81 131/81 (98) 07/05/17 16:45 79 07/05/17 16:41 79 119/85 (96) 07/05/17 16:40 72 07/05/17 16:38 18 07/05/17 16:37 74 129/81 (97) 07/05/17 16:35 65 07/05/17 16:30 62 07/05/17 16:15 98.3 18 07/05/17 16:15 61 119/70 (86) 07/05/17 15:46 78 16 107/58 (74) 07/05/17 15:03 64 115/66 (82) 07/05/17 15:00 16 07/05/17 14:08 16 07/05/17 14:07 75 120/75 (90) 07/05/17 13:35 79 120/71 (87) 07/05/17 13:34 98.1 16 07/05/17 12:36 87 115/68 (84) 07/05/17 12:35 16 9/15/17 12:13 81 118/77 (91) 07/05/17 12:12 98.1 17 Narrative GENERAL: Well-nourished, well-developed patient. SKIN: Warm and dry. HEAD: Normocephalic and atraumatic. EYES: No scleral icterus. No injection or drainage. ENT: No nasal drainage noted. Mucous membranes pink. Airway patent. NECK: Supple, trachea midline. No JVD. CARDIOVASCULAR: Regular rate and rhythm without murmurs, gallops, or rubs. RESPIRATORY: Breath sounds equal bilaterally. No accessory muscle use. BREASTS: Bilateral exam showed no masses , no retractions, no nipple discharge. ABDOMEN/GI: Abdomen soft, non-tender, bowel sounds present, no rebound, no guarding Gravid to 39 weeks size Fundal Height: [-] GENITOURINARY: External Genitalia: intact and normal in appearance BUS glands: [-] Cervix: [-] Dilatation: 3 Effacement: [-] Station: [-] Presentation: vtx Membranes: intact Uterine Contractions: [-] FHT's: Category: 1 Baseline: [-] Reactive: [-] Variability: [-] Decels: [-] EXTREMITIES: No cyanosis or edema. BACK: Nontender without obvious deformity. No CVA tenderness. NEUROLOGICAL: Awake and alert. Motor and sensory grossly within normal limits. Five out of 5 muscle strength in all muscle groups. Normal speech. Caprini VTE Risk Assessment Caprini VTE Risk Assessment: No/Low Risk (score <= 1) Caprini Risk Assessment Model Point Value = 1 Point Value = 2 Point Value = 3 Point Value = 5 Age 41-60 Minor surgery BMI > 25 kg/m2 Swollen legs Varicose veins or History of unexplained or recurrent spontaneous Oral contraceptives or hormone replacement Sepsis (< 1 month) Serious lung disease, including pneumonia (< 1 month) Abnormal pulmonary function Acute myocardial infarction Congestive heart failure (< 1 month) History of inflammatory bowel disease Medical patient at bed rest Age 61-74 Arthroscopic surgery Major open surgery (> 45 min) Laparoscopic surgery (> 45 min) Malignancy Confined to bed (> 72 hours) Immobilizing plaster cast Central venous access Age >= 75 History of VTE Family history of VTE Factor V Leiden Prothrombin [id number] Lupus anticoagulant Anticardiolipin antibodies Elevated serum homocysteine Heparin-induced thrombocytopenia Other congenital or acquired thrombophilia Stroke (< 1 month) Elective arthroplasty Hip, pelvis, or leg fracture Acute spinal cord injury (< 1 month) Prophylaxis Regimen Total Risk Factor Score Risk Level Prophylaxis Regimen 0-1 Low Early ambulation 2 Moderate Order ONE of the following: *Sequential Compression Device (SCD) *Heparin 5000 units SQ BID 3-4 Higher Order ONE of the following medications: *Heparin 5000 units SQ TID *Enoxaparin/Lovenox 40 mg SQ daily (WT < 150 kg, CrCl > 30 mL/min) *Enoxaparin/Lovenox 30 mg SQ daily (WT < 150 kg, CrCl > 10-29 mL/min) *Enoxaparin/Lovenox 30 mg SQ BID (WT < 150 kg, CrCl > 30 mL/min) AND/OR *Sequential Compression Device (SCD) 5 or more Highest Order ONE of the following medications: *Heparin 5000 units SQ TID (Preferred with Epidurals) *Enoxaparin/Lovenox 40 mg SQ daily (WT < 150 kg, CrCl > 30 mL/min) *Enoxaparin/Lovenox 30 mg SQ daily (WT < 150 kg, CrCl > 10-29 mL/min) *Enoxaparin/Lovenox 30 mg SQ BID (WT < 150 kg, CrCl > 30 mL/min) AND *Sequential Compression Device (SCD) Data Data Vital Signs Reviewed: Yes Orders Orders Complete Blood Count With Diff (07/05/17 11:19) Abo/Rh Blood Type (07/05/17 11:19) Urinalysis - C+S If Indicated (07/05/17 11:19) Specimen To Be Collected PRN (07/05/17 11:19) Hold Clot (07/05/17 11:19) Urine Culture (07/05/17 10:30) Admit To Inpatient (07/05/17 ) Code Status (07/05/17 11:40) Vital Signs (Adult) .Per protocol (07/05/17 11:40) Heart (07/05/17 11:40) Amnioinfusion (07/05/17 11:40) Urinary Catheter Management .ONCE (07/05/17 11:40) Diet Liquid (07/05/17 Lunch) Lactated Ringer's 1000 Ml Inj (Lr 1000 M (07/05/17 12:00) Lactated Ringer's 1000 Ml Inj (Lr 1000 M (07/05/17 12:00) Sodium Chlorid 0.9% 500 Ml Inj (Ns 500 M (07/05/17 11:45) Sodium Chlor 0.9% 1000 Ml Inj (Ns 1000 M (07/05/17 12:00) Lidocaine 1% Inj (50 Ml) (Xylocaine 1% I (07/05/17 11:45) Citric Acid-Sodium Citrate Liq (Bicitra (07/05/17 11:45) Fentanyl Inj (Fentanyl Inj) (07/05/17 11:45) Fentanyl Inj (Fentanyl Inj) (07/05/17 11:45) Cefazolin 2 Gm Premix (Ancef 2 Gm Premix (07/05/17 12:00) Cefazolin Inj (Ancef Inj) (07/05/17 16:00) Resp Oxygen Non Rebreathe Mask (07/05/17 ) ^ Epidural / Intrathecal Infus (07/05/17 11:40) Oxytocin 30 Units-500ml Premix (Pitocin (07/05/17 11:45) Lidocaine 1% Inj (50 Ml) (Xylocaine 1% I (07/05/17 11:45) Light Mineral Oil (Muri-Lube Oil) (07/05/17 11:45) Inpatient Certification (07/05/17 ) ^ Non Stress Test (07/05/17 11:40) Response To Medication .Post New Med Administration, Reaction (07/05/17 11:40) ^ Discontinue Medication (07/05/17 11:40) Oxytocin 30 Units-500ml Premix (Pitocin (07/05/17 11:45) Oxytocin 30 Units-500ml Premix (Pitocin (07/05/17 12:15) ^ Place On Chart (07/05/17 ) ^ Medication Indications (07/05/17 ) Consent (07/05/17 ) ^ No Systemic Narcotics (07/05/17 ) ^ Call Anesthesiologist (07/05/17 ) ^ Discontinue Epidural Cathete (07/05/17 ) Anticoagulant Alert (07/05/17 ) ^ Epidural Alert (07/05/17 ) Fentanyl 2mcg-Bupiv 0.125% Inj (Fentanyl (07/05/17 16:19) Ephedrine/Ns 25 Mg/5 Ml Syr (Ephedrine/N (07/05/17 16:27) Bupivacaine Pf 0.25% Inj (Marcaine Pf 0. (07/05/17 16:33) ^ Place On Chart (07/05/17 ) ^ Medication Indications (07/05/17 ) Consent (07/05/17 ) ^ No Systemic Narcotics (07/05/17 ) ^ Call Anesthesiologist (07/05/17 ) ^ Discontinue Epidural Cathete (07/05/17 ) Anticoagulant Alert (07/05/17 ) ^ Epidural Alert (07/05/17 ) Misc Nursing Information (07/05/17 17:30) Misc Nursing Information (07/05/17 17:30) Fentanyl Inj (Fentanyl Inj) (07/05/17 17:30) Fentanyl 2mcg-Bupiv 0.125% Inj (Fentanyl (07/05/17 17:30) Ephedrine/Ns 25 Mg/5 Ml Syr (Ephedrine/N (07/05/17 17:30) Vital Signs (Adult) .QSHIFT (07/05/17 22:48) Activity Oob Ad Evonne (07/05/17 22:48) Ice / Cold Pack PRN (07/05/17 22:48) Discontinue Iv (07/05/17 22:48) Sitz Bath PRN (07/05/17 22:48) ^ Massage (07/05/17 22:48) ^ Rhogam (07/05/17 22:48) Urinary Catheter Management .PRN (07/05/17 22:48) Diet Regular Basic (07/06/17 Breakfast) Sodium Chloride 0.9% Flush (Ns Flush) (07/06/17 09:00) Sodium Chloride 0.9% Flush (Ns Flush) (07/05/17 23:00) Oxytocin 30 Units-500ml Premix (Pitocin (07/05/17 23:00) Acetaminophen (Tylenol) (07/05/17 23:00) Ibuprofen (Motrin) (07/05/17 23:00) Oxycodone-Acetamin 5-325 Mg (Percocet (07/05/17 23:00) Oxycodone-Acetamin 5-325 Mg (Percocet (07/05/17 23:00) Benzocaine 20% Top Spr (Americaine 20% T (07/05/17 23:00) Witch Karina-Glycerin Pad (Tucks Pads) (07/05/17 23:00) Docusate Sodium-Senna (Zeny-Colace) (07/05/17 23:00) Zolpidem (Ambien) (07/05/17 23:00) Vdxtazs-Hwzkv-Shqnfld Inj (M-M-R Ii Inj) (07/05/17 16:00) Vojy-Lwy-Ysxuep (Booster) Inj (Boostrix (07/05/17 16:00) Al-Mag Hy-Si 40-40-4 Mg/Ml Liq (Mag-Al P (07/05/17 23:00) Ondansetron Odt (Zofran Odt) (07/05/17 23:00) Labs Laboratory Tests Test 07/05/17 10:30 07/05/17 11:00 Urine Color YELLOW Urine Turbidity HAZY Urine pH 6.0 Urine Specific Mellen 1.020 Urine Protein TRACE Urine Glucose (UA) NEG Urine Ketones NEG Urine Occult Blood NEG Urine Nitrite NEG Urine Bilirubin NEG Urine Urobilinogen LESS THAN 2.0 Urine Leukocyte Esterase LARGE Urine RBC 2 Urine WBC 22 Urine Squamous Epithelial Cells 11 Urine Bacteria FEW Urine Mucus FEW Microscopic Urinalysis Comment CULTURE INDICATED White Blood Count 10.6 Red Blood Count 4.39 Hemoglobin 11.6 Hematocrit 35.5 Mean Corpuscular Volume 80.9 Mean Corpuscular Hemoglobin 26.5 Mean Corpuscular Hemoglobin Concent 32.8 Red Cell Distribution Width 14.1 Platelet Count 191 Mean Platelet Volume 9.1 Neutrophils (%) (Auto) 71.7 Lymphocytes (%) (Auto) 20.7 Monocytes (%) (Auto) 6.1 Eosinophils (%) (Auto) 0.9 Basophils (%) (Auto) 0.6 Neutrophils # (Auto) 7.6 Lymphocytes # (Auto) 2.2 Monocytes # (Auto) 0.7 Eosinophils # (Auto) 0.1 Basophils # (Auto) 0.1 CBC Comment DIFF FINAL Differential Comment Date/Time Source Procedure Growth Status 07/05/17 10:30 Urine Clean Catch Urine Culture Pending Received Assessment/Plan Problem List: (1) Term ICD Codes: Z34.80 - Encounter for supervision of other normal , unspecified trimester Status: Acute Assessment and Plan for treatment of GBS and induction Jhoan Gutierrez MD Jul 05, 2017 22:54
--- NOTE | 2017-07-05 22:56 | PD.OB.DELI ---
Weeks gestation: 39 Gest age assessed date: Jul 05, 2017 Gest age assessed time: 12:00 Pt started active labor?: Yes Active labor start date: Jul 05, 2017 Active labor start time: 15:00 Medical induction of labor?: No Artificial rupture of membrane: Yes Artificial ROM date: Jul 05, 2017 Artifical ROM time: 18:05 Anesthesia: Epidural Episiotomy: None Vaginal Delivery: Normal, Spontaneous Presentation: Occiput anterior Nuchal Cord: None Delayed cord clamping (45 sec): Yes : Male Delivery date: Jul 05, 2017 Delivery time: 22:33 One Minute : 8 Five Minute : 9 Weight: 3375 gm Placenta: Spontaneous delivery, Intact, 3 vessel cord Laceration: No lacerations Estimated blood loss: 300 Jhoan Gutierrez MD Jul 05, 2017 22:56
[2017-07-05] MEDS ORDERED: ACETAMINOPHEN 325 MG TAB PO PRN (23:00)
[2017-07-05] MEDS ORDERED: ALUMINUM/MAGNESIUM/SIMETH 30 ML CUP PO PRN (23:00)
[2017-07-05] MEDS ORDERED: WITCH HAZEL 50%/GLYCERIN 12.5% 40 PAD JAR TOPICAL PRN (23:00)
[2017-07-05] MEDS ORDERED: ONDANSETRON ODT 4 MG TAB PO PRN (23:00)
[2017-07-05] MEDS ORDERED: DOCUSATE SODIUM 50 MG/SENNA 8.6 MG TAB PO PRN (23:00)
[2017-07-05] MEDS ORDERED: BENZOCAINE 20% TOPICAL SPRAY 60 ML CAN TOPICAL PRN (23:00)
[2017-07-05] MEDS ORDERED: oxyCODONE/ACETAMINOPHEN 5 MG/325 MG TAB PO PRN ×2 (23:00)
[2017-07-05] MEDS ORDERED: SODIUM CHLORIDE 0.9% FLUSH 10 ML FLUSH IV FLUSH PRN (23:00)
[2017-07-05] MEDS ORDERED: ZOLPIDEM TARTRATE 5 MG TAB PO PRN (23:00)
[2017-07-06] VITALS (11 sets, daily range): BP systolic 107–131; BP diastolic 61–83; PULSE 60–95; RESP 14–20; TEMP 97.3–98.3
[2017-07-06] MEDS: IBUPROFEN 600 MG TAB PO PRN ×3 (05:30→17:57)
--- NOTE | 2017-07-06 06:39 | HHI.DCPOC ---
Discharge Care Plan Diagnosis: (1) Spontaneous vaginal delivery Report Symptoms to Your Doctor -Temperature above 100.5 degrees -Redness, of incision or excessive or foul smelling drainage -Unusual pain or calf pain -Increased vaginal bleeding -Painful or difficulty urinating -Feelings of extreme sadness or anxiety after 2 weeks Goals to Promote Your Health * To prevent worsening of your condition and complications * To maintain your health at the optimal level Directions to Meet Your Goals Take your medications as prescribed Follow your dietary instruction Follow activity as directed Ensure plenty of rest for recovery Drink fluids for hydration Keep your appointments as scheduled Take your immunizations and boosters as scheduled If your symptoms worsen call your PCP, if no PCP go to Urgent Care Center or Emergency Room Smoking is Dangerous to Your Health. Avoid second hand smoke Call the 24-hour crisis hotline for domestic abuse at Jhoan Gutierrez MD Jul 06, 2017 06:39
--- NOTE | 2017-07-06 06:47 | HHI.OB ---
Subjective Post Day: 1 Remarks doing well Objective Vitals/I&O Vital Signs Date Time Temp Pulse Resp B/P (MAP) Pulse Ox O2 Delivery O2 Flow Rate FiO2 07/06/17 05:15 98.3 70 20 121/75 (90) 07/06/17 04:53 14 07/06/17 04:51 76 121/63 (82) 07/06/17 02:00 98.0 07/06/17 01:06 18 07/06/17 01:04 68 107/61 (76) 07/06/17 00:30 95 131/83 (99) 07/06/17 00:15 69 127/66 (86) 07/06/17 00:01 74 118/77 (91) 07/05/17 23:50 17 07/05/17 23:45 72 07/05/17 23:45 124/67 (86) 07/05/17 23:30 75 123/72 (89) 07/05/17 23:19 70 122/68 (86) 07/05/17 23:01 70 146/94 (111) 07/05/17 22:50 98.1 86 18 07/05/17 22:46 145/67 (93) 07/05/17 22:30 88 128/79 (95) 07/05/17 22:15 86 110/58 (75) 07/05/17 22:00 98.1 17 07/05/17 22:00 86 112/67 (82) 07/05/17 21:46 91 116/79 (91) 07/05/17 21:15 61 107/54 (71) 07/05/17 21:08 18 07/05/17 21:00 65 117/75 (89) 07/05/17 20:45 71 125/72 (89) 07/05/17 20:30 69 128/76 (93) 07/05/17 20:15 70 123/77 (92) 07/05/17 20:01 68 128/70 (89) 07/05/17 19:46 123/64 (83) 07/05/17 19:31 67 123/66 (85) 07/05/17 19:21 98.1 17 07/05/17 19:15 72 121/80 (94) 07/05/17 19:00 64 119/68 (85) 07/05/17 18:45 66 119/65 (83) 07/05/17 18:15 68 120/70 (87) 07/05/17 17:55 80 07/05/17 17:50 82 07/05/17 17:46 62 114/63 (80) 07/05/17 17:45 74 07/05/17 17:34 18 07/05/17 17:30 73 18 119/69 (86) 07/05/17 17:30 67 07/05/17 17:25 72 07/05/17 17:20 79 07/05/17 17:15 73 121/60 (80) 07/05/17 17:15 65 07/05/17 17:10 69 07/05/17 17:05 71 07/05/17 17:05 73 115/68 (84) 07/05/17 17:01 71 118/54 (75) 07/05/17 17:00 71 07/05/17 16:56 69 18 115/62 (79) 07/05/17 16:55 66 07/05/17 16:53 61 111/65 (80) 07/05/17 16:51 63 117/58 (77) 07/05/17 16:50 86 07/05/17 16:45 81 131/81 (98) 07/05/17 16:45 79 07/05/17 16:41 79 119/85 (96) 07/05/17 16:40 72 07/05/17 16:38 18 07/05/17 16:37 74 129/81 (97) 07/05/17 16:35 65 07/05/17 16:30 62 07/05/17 16:15 98.3 18 07/05/17 16:15 61 119/70 (86) 07/05/17 15:46 78 16 107/58 (74) 07/05/17 15:03 64 115/66 (82) 07/05/17 15:00 16 07/05/17 14:08 16 07/05/17 14:07 75 120/75 (90) 07/05/17 13:35 79 120/71 (87) 07/05/17 13:34 98.1 16 07/05/17 12:36 87 115/68 (84) 07/05/17 12:35 16 07/05/17 12:13 81 118/77 (91) 07/05/17 12:12 98.1 17 Objective Remarks GENERAL: Well-nourished, well-developed patient. ABDOMEN/GI: Abdomen soft, non-tender. normal lochia Fundus: Firm, non-tender at umbilicus. GENITOURINARY: Light to moderate bleeding. EXTREMITIES: No cyanosis or edema, non-tender, without signs of DVT. Medications and IVs Current Medications Medications (Trade) Dose Ordered Sig/Mary Grace Route Start Time Stop Time Status Last Admin (NS Flush) 2 ml BID IV FLUSH 07/06/17 09:00 (NS Flush) 2 ml UNSCH PRN IV FLUSH 07/05/17 23:00 (Tylenol) 650 mg Q4H PRN PO 07/05/17 23:00 (Motrin) 600 mg Q6H PRN PO 07/05/17 23:00 07/06/17 05:30 (Percocet 5-325 Mg) 1 tab Q4H PRN PO 07/05/17 23:00 (Percocet 5-325 Mg) 2 tab Q4H PRN PO 07/05/17 23:00 (Americaine 20% Top Spr) 1 spray Q4H PRN TOPICAL 07/05/17 23:00 (Tucks Pads) 1 applic QID PRN TOPICAL 07/05/17 23:00 (Zeny-Colace) 2 tab Q12H PRN PO 07/05/17 23:00 (Ambien) 5 mg HS PRN PO 07/05/17 23:00 (Mag-Al Plus Susp Liq) 15 ml Q8H PRN PO 07/05/17 23:00 (Zofran Odt) 4 mg Q6H PRN PO 07/05/17 23:00 Assessment/Plan Problem List: (1) Term ICD Codes: Z34.80 - Encounter for supervision of other normal , unspecified trimester Status: Acute (2) Spontaneous vaginal delivery ICD Codes: O80 - Encounter for full-term uncomplicated delivery Status: Acute Assessment and Plan doing well Jhoan Gutierrez MD Jul 06, 2017 06:47
[2017-07-06] MEDS ORDERED: SODIUM CHLORIDE 0.9% FLUSH 10 ML FLUSH IV FLUSH SCH (09:00)
[2017-07-07 07:30] VITALS: BP 109/74; PULSE 57; RESP 16; TEMP 98.3
[2017-07-07] MEDS: IBUPROFEN 600 MG TAB PO PRN ×2 (07:30→17:45)
--- NOTE | 2017-07-07 09:29 | HHI.OB ---
Subjective Post Day: 2 Remarks doing well dc home Objective Vitals/I&O Vital Signs Date Time Temp Pulse Resp B/P (MAP) Pulse Ox O2 Delivery O2 Flow Rate FiO2 07/07/17 07:30 98.3 57 16 07/07/17 07:30 109/74 (86) 07/06/17 21:00 98.0 64 18 110/62 (78) Objective Remarks GENERAL: Well-nourished, well-developed patient. ABDOMEN/GI: Abdomen soft, non-tender. normal lochia Fundus: Firm, non-tender at umbilicus. GENITOURINARY: Light to moderate bleeding. EXTREMITIES: No cyanosis or edema, non-tender, without signs of DVT. Medications and IVs Current Medications Medications (Trade) Dose Ordered Sig/Mary Grace Route Start Time Stop Time Status Last Admin (NS Flush) 2 ml BID IV FLUSH 07/06/17 09:00 (NS Flush) 2 ml UNSCH PRN IV FLUSH 07/05/17 23:00 (Tylenol) 650 mg Q4H PRN PO 07/05/17 23:00 (Motrin) 600 mg Q6H PRN PO 07/05/17 23:00 07/07/17 07:30 (Percocet 5-325 Mg) 1 tab Q4H PRN PO 07/05/17 23:00 (Percocet 5-325 Mg) 2 tab Q4H PRN PO 07/05/17 23:00 (Americaine 20% Top Spr) 1 spray Q4H PRN TOPICAL 07/05/17 23:00 (Tucks Pads) 1 applic QID PRN TOPICAL 07/05/17 23:00 (Zeny-Colace) 2 tab Q12H PRN PO 07/05/17 23:00 07/06/17 08:46 (Ambien) 5 mg HS PRN PO 07/05/17 23:00 (Mag-Al Plus Susp Liq) 15 ml Q8H PRN PO 07/05/17 23:00 (Zofran Odt) 4 mg Q6H PRN PO 07/05/17 23:00 Assessment/Plan Problem List: (1) Term ICD Codes: Z34.80 - Encounter for supervision of other normal , unspecified trimester Status: Acute (2) Spontaneous vaginal delivery ICD Codes: O80 - Encounter for full-term uncomplicated delivery Status: Acute Assessment and Plan doing well Jhoan Gutierrez MD Jul 07, 2017 09:29
[2017-07-07] MEDS ORDERED: OXYC1TAB63 PO (09:30)
--- NOTE | 2017-07-07 10:00 | HHI.DS ---
Admission Date Jul 05, 2017 at 09:59 Discharge Date: Jul 07, 2017 Admitting Diagnosis Diagnosis: (1) Spontaneous vaginal delivery ICD Codes: O80 - Encounter for full-term uncomplicated delivery Status: Acute Delivery Date: Jul 05, 2017 Vaginal Delivery: Normal Infant: Male Brief History 39 week induction with favorable cervix Hospital Course on day of admission dc home on ppd #2 Pt Condition on Discharge: Good Discharge Disposition: Discharge Home Discharge Instructions Diet Instructions: As Tolerated, No Restrictions Activities You Can Perform: Pelvic Rest Activities to Avoid: Driving for 24 hrs Follow up Referrals: [facility] - 2 Weeks @ [facility] with Jhoan Gutierrez MD New Medications: Oxycodone-Acetaminophen (Oxycodone-Acetaminophen) 5-325 mg Tab 2 TAB PO Q4H PRN for PAIN SCALE 6 TO 10 for 7 Days, #20 TAB 0 Refills Continued Medications: Vit-Iron Carbonyl ( Plus Iron 29-1 mg) 1 Tab Tab 1 TAB PO DAILY for Nutritional Supplement, #30 TAB 0 Refills Jhoan Gutierrez MD Jul 07, 2017 10:00
== END 2017-07-07 18:13 | disposition home or self-care (01) | DRG 775 ==
LOC: H2EB 09:59 → H1EA 07-06 05:04
PROVIDERS: ADMIT Obstetrics & Gynecology; ATTEND Obstetrics & Gynecology
PROC: 10E0XZZ Delivery of Products of Conception, External Approach (ICD-10-PCS; principal; 2017-07-05)
PROC: 00HU33Z Insertion of Infusion Device into Spinal Canal, Percutaneous Approach (ICD-10-PCS; 2017-07-05)
PROC: 3E0R3CZ (ICD-10-PCS; 2017-07-05)
DX: O80 Encounter for full-term uncomplicated delivery (principal); Z37.0 Single live birth; Z3A.39 39 weeks gestation of pregnancy
CPT/HCPCS: 59025; 81001; 85025; 87086; 90715; J0690; J2590; J7120

== ENCOUNTER 2017-07-23 15:21 | Emergency (ER) | payer MEDICAID ==
[~2017-07-23] VITALS: Ht 160 cm; Wt 67.0 kg
[~2017-07-23 15:21] MED LIST changes: +OXYC1TAB63 PO
[2017-07-23 15:22] VITALS: BP 120/66; PULSE 94; RESP 16; TEMP 98.5; O2SAT 99
[2017-07-23] MEDS ORDERED: CIPRHC10A RIGHT EAR (15:40)
--- NOTE | 2017-07-23 15:40 | PD ---
HPI Chief Complaint: ENT Complaint Time Seen by Provider: 15:35 Travel History International Travel<30 days: No Contact w/Intl Traveler<30days: No Traveled to known affect area: No History of Present Illness HPI 27 old female presents to emergency department for evaluation of pain and swelling of the right ear. States her hearing is muffled. This is the worsening over the last week. Denies any fever or chills. States the pain is constant but exacerbated by touch. It is throbbing. Denies any injury. No drainage. She has no other symptoms to report. PFSH Past Medical History Hx Anticoagulant Therapy: No Diminished Hearing: No Kidney Stones: Yes Immunizations Current: Yes ?: Not : 2 Para: 2 Past Surgical History Cholecystectomy: Yes (03/2015) Oral Surgery: Yes (WISDOM TEETH) Social History Alcohol Use: No Tobacco Use: No Substance Use: No Allergies-Medications (Allergen,Severity, Reaction): Coded Allergies: penicillin G (Verified Allergy, Severe, RASH, 07/23/17) doxycycline (Verified Allergy, Intermediate, RASH, 07/23/17) sulfamethoxazole (Verified Allergy, Intermediate, RASH, 07/23/17) trimethoprim (Verified Allergy, Intermediate, RASH, 07/23/17) Reported Meds & Prescriptions Reported Meds & Active Scripts Active Cipro Hc Otic Drops (Ciprofloxacin/Hydrocortisone) 0.2-1% Susp 3 Drop RIGHT EAR BID Oxycodone-Acetaminophen 5-325 mg Tab 2 Tab PO Q4H PRN 7 Days Reported Plus Iron 29-1 mg ( Vit-Iron Carbonyl) 1 Tab Tab 1 Tab PO DAILY Review of Systems Except as stated in HPI: all other systems reviewed are Neg Physical Exam Narrative GENERAL: Well-nourished, well-developed female patient, in no acute distress SKIN: Focused skin assessment warm/dry. HEAD: Normocephalic. Mastoid tenderness. EARS: Bilateral pinnae and left external canals appear within normal limits. The right external canal is edematous and reddened. Bilateral tympanic membranes without erythema, dullness or perforation. EYES: No scleral icterus. No injection or drainage. NECK: Supple, trachea midline. No JVD or lymphadenopathy. CARDIOVASCULAR: Regular rate and rhythm without murmurs, gallops, or rubs. RESPIRATORY: Breath sounds equal bilaterally. No accessory muscle use. GASTROINTESTINAL: Abdomen soft, non-tender, nondistended. MUSCULOSKELETAL: No cyanosis, or edema. BACK: Nontender without obvious deformity. No CVA tenderness. Data Data Last Documented VS Vital Signs Date Time Temp Pulse Resp B/P (MAP) Pulse Ox O2 Delivery O2 Flow Rate FiO2 07/23/17 15:47 07/23/17 15:22 98.5 94 16 99 Room Air MDM Medical Decision Making Medical Screen Exam Complete: Yes Emergency Medical Condition: Yes Medical Record Reviewed: Yes Differential Diagnosis Otitis externa versus cellulitis versus abscess versus insect bite versus folliculitis versus psoriasis Narrative Course 20 61 female presents to [facility] department for evaluation right ear pain. Physical exam is consistent with an otitis externa. Patient will be treated for this. She is counseled on care encouraged follow-up with primary care provider and to return immediately with any acute worsening of symptoms. Diagnosis Primary Impression: Otitis externa of right ear Qualified Codes: H60.501 - Unspecified acute noninfective otitis externa, right ear Referrals: Ear / Nose / Throat Specialist Primary Care Physician Patient Instructions: Ear Infection (ED), General Instructions Additional Instructions: Avoid water submersion Follow up with a primary care provider Seek ENT evaluation Return immediately with acute worsening of symptoms Med/Other Pt SpecificInfo: Prescription(s) given Scripts Ciprofloxacin-Hydrocortisone Otic Drops (Cipro Hc Otic Drops) 0.2-1% Susp 3 DROP RIGHT EAR BID for Infection, #1 BOTTLE 0 Refills Prov: Hailee Cabrera 07/23/17 Disposition: 01 DISCHARGE HOME Condition: Stable Hailee Cabrera Jul 23, 2017 15:40
== END 2017-07-23 15:57 | disposition home or self-care (01) ==
LOC: NEPK 15:21
DX: H60.501 Unspecified acute noninfective otitis externa, right ear (principal)
CPT/HCPCS: 99282